=== PATIENT | male | born 1990 | race Caucasian/White ===

== ENCOUNTER 2017-12-24 09:36 | Emergency (ER) | payer BC, SELFPAY ==
[~2017-12-24 09:36] MED LIST: ISOVUE-370 76%-LOCM 1 ML ONE
[2017-12-24] MEDS ORDERED: Ondansetron HCl/PF 4 MG/2 ML Vial ONE (10:31)
[2017-12-24] MEDS ORDERED: Ibuprofen 800 MG TAB ONE (11:22)
[2017-12-24] MEDS ORDERED: Sulfameth/Trimethoprim DS 800-160mg TAB ONE (11:22)
[2017-12-24] MEDS ORDERED: Lidocaine 1% PF 5 ML VIAL ONE (11:22)
--- NOTE | 2017-12-24 11:22 | CT ---
CT PELVIS WITH IV CONTRAST: 12/24/2017 HISTORY: Perirectal abscess. Symptoms worsening today. FINDINGS: There is a small collection in the medial subcutaneous soft tissues, just below the level of the rect um, on the left, which measures 3.7 cm craniocaudal x 3.8 cm AP x 1.2 cm transverse, with adjacent in flammatory changes and minimal skin thickening present. Findings are suggestive of a small abscess c ollection. The urinary bladder has a normal CT appearance. There is no free fluid, fluid collection, or lymphad enopathy seen within the pelvis. The appendix is visualized and filled with gas and normal in calibe r. There is no evidence of lymphadenopathy. The osseous structures are intact. IMPRESSION: Small fluid collection seen just below the skin surface inferior to the rectum, in the most medial as pect junction of the left gluteal region/left thigh, likely related to a very small abscess collectio n. POS: [facility]
[2017-12-24 11:27] LABS: Hemoglobin 15.7 g/dL (14.0-18.0); Mean Corpuscular HGB CONC 31.9 g/dL (32.0-36.0); Mean Corpuscular Hemoglobin 31.2 pg (27.0-31.0); Mean Corpuscular Volume 97.8 fl (80.0-94.0); Mean Platelet Volume 7.5 fL (7.4-10.4); Platelet Count 354 thou/uL (130-400); RBC Distribution Width 12.2 % (11.5-14.5); Red Blood Cell (RBC) Count 5.04 mill/uL (4.70-6.10)
[2017-12-24 11:38] LABS: ALT (SGPT) 15 U/L (8-55); AST (SGOT) 17 U/L (5-34); Albumin 4.3 g/dL (3.5-5.0); Alkaline Phosphatase 77 U/L (40-150); Anion Gap 13 mmol/L (10-20); BUN (Urea Nitrogen) 10 mg/dL (8.9-20.6); Bilirubin, Total 0.4 mg/dL (0.2-1.2); Calc. Creatinine Clearance 0 mL/min (70-130); Calcium 9.3 mg/dL (7.8-10.44); Carbon Dioxide 23 mmol/L (22-29); Chloride 108 mmol/L (98-107); Estimated GFR-MDRD Greater than 90; Globulin 3.2 g/dL (2.4-3.5); Glucose 83 mg/dL (70-105); Protein, Total 7.5 g/dL (6.0-8.3); Sodium 140 mmol/L (136-145)
[2017-12-24 11:50] LABS: Lymphocytes 23 % (21-51); MDiff Complete? YES; Monocytes 9 % (0-10); Neutrophil 66 % (42-75); PLT Morphology Comment Appears Adequate; Reactive Lymphocytes 2 % (0-10)
[2017-12-24] MEDS ORDERED: cefTRIAXone\\ROCEPHIN 1 GM, Syringe 0.4 ML in Sterile Water 9.6 ML SLOW IVP SCH (12:15)
== END 2017-12-24 12:15 | disposition home or self-care (01) ==
LOC: ERS 09:36
DX: L02.31 Cutaneous abscess of buttock (principal); L03.317 Cellulitis of buttock; F17.210 Nicotine dependence, cigarettes, uncomplicated
CPT/HCPCS: 36415; 72193; 80053; 83605; 85025; 87040; 96361; 96374; 96375; 99406; A4216; J0696; J2001; J2270; J2405